=== PATIENT | male | born 1985 | race Two or more races ===

== ENCOUNTER 2018-08-24 14:08 | Emergency (ER) | payer SELFPAY ==
[~2018-08-24] VITALS: Ht 167.6 cm; Wt 63.5 kg
[2018-08-24] MEDS ORDERED: Tetanus/Diptheria/Pertussis Vaccine 0.5ml Syr IM ONE (14:15)
--- NOTE | 2018-08-24 14:37 | Emergency Room Report ---
History of Present Illness General Chief Complaint: Altered Mental Status Source: EMS Present Illness HPI 33-year-old male presents to the emergency department brought by ambulance for altered level of consciousness and possible trauma. Patient is clinically new. He is alert and reports that he is having some tenderness to the back of his head. He reports that he fell he states he has been drinking approximately 3-4 beers today. Patient denies acute onset headache, midline neck or back pain abdominal pain or tenderness, nausea or vomiting. Patient states he is able to walk. He denies taking blood thinning medications he states he is not currently taking any medicine patient's at all. Denies use of illicit drugs/ substances. He denies fevers or chills. He denies tenderness or abrasions/ wounds elsewhere on the body. Some history and ROS is limited due to pt. having ALC, he is a poor historian. He denies history of seizures or ETOH withdraws. Denies SI/HI. Allergies: Coded Allergies: UNABLE TO ASSESS (Unverified , 08/24/18) Patient History Past Medical History: see triage record Past Surgical History: none Pertinent Family History: none Social History: Reports: alcohol use Reviewed Nursing Documentation: PMH: Agreed; PSxH: Agreed Nursing Documentation-PMH Past Medical History: Deferred Review of Systems All Other Systems: limited - pt. is clinically ineubriated. Physical Exam Vital Signs Date Time Temp Pulse Resp B/P (MAP) Pulse Ox O2 Delivery O2 Flow Rate FiO2 08/24/18 14:10 98.5 130 16 144/87 96 Room Air 98.4 Sp02 EP Interpretation: reviewed, normal General Appearance: no apparent distress, alert, GCS 15, non-toxic, other - Disheveled Head: normocephalic, other - contusion and abrasions to the right cheekbone and the right upper lip, no oral lesions, some dry blood in the right nare, no septal hematoma. no george signs or evidence of hemotympanum or csf leakage. Eyes: bilateral eye normal inspection, bilateral eye PERRL ENT: hearing grossly normal, normal voice Neck: full range of motion, no bony tend Respiratory: chest non-tender, lungs clear, normal breath sounds, no wheezing, speaking full sentences Cardiovascular #1: regular rate, rhythm, no edema Gastrointestinal: normal bowel sounds, non tender, soft, non-distended, no guarding, other - mild skin discoloration possible resolving contusion the the left anterior abdomen, no ttp. Rectal: deferred Musculoskeletal: back normal, gait/station normal, normal range of motion, non- tender Neurologic: alert, responsive, motor strength/tone normal, sensory intact, speech normal - mildly slurred, clear for the most part. , other - pt. has normal gross motor movemetns of the extremity, strength normal and equal bilaterally. gross sensation is intact. there is evidence of urine on his pants. , grossly normal Psychiatric: judgement/insight normal Skin: normal color, no rash, warm/dry, well hydrated Lymphatic: no adenopathy Medical Decision Making PA Attestation Dr. belcher is my supervising Physician whom patient management has been discussed with. Diagnostic Impression: Primary Impression: Alcohol intoxication Qualified Codes: F10.920 - Alcohol use, unspecified with intoxication, uncomplicated Additional Impressions: Contusion of face Qualified Codes: S00.83XA - Contusion of other part of head, initial encounter Facial abrasion Qualified Codes: S00.81XA - Abrasion of other part of head, initial encounter Elevated liver function tests ER Course 33-year-old male presents to the emergency department brought by ambulance for altered level of consciousness and possible trauma. Patient is clinically new. He is alert and reports that he is having some tenderness to the back of his head. He reports that he fell he states he has been drinking approximately 3-4 beers today. Patient denies acute onset headache, midline neck or back pain abdominal pain or tenderness, nausea or vomiting. Patient states he is able to walk. He denies taking blood thinning medications he states he is not currently taking any medicine patient's at all. Denies use of illicit drugs/ substances. He denies fevers or chills. He denies tenderness or abrasions/ wounds elsewhere on the body. Some history and ROS is limited due to pt. having ALC, he is a poor historian. He denies history of seizures or ETOH withdraws. Denies SI/HI. - facial contusion and abrasions suspicious for trauma. Ddx considered but are not limited to ETOH, DT's, Withdraw, Trauma, Syncope, dementia, OD Vital signs: tachycardic, otherwise are WNL, pt. is afebrile- BP remains stable tachycardia improved some. H&PE are most consistent with ETOH intoxication, however will r/o other emergent conditions associated with AMS as well as check serum ETOH to confirm presence of ETOH. ORDERS: -Labs- ETOH was 315, mildly decreased cl, na, k - pt. given IV fluids, elevated LFT's. -CT imaging Head and facial bones unremarkable ED INTERVENTIONS: -Wound Care -Observance while he detoxifies. - Pt. was allowed to sleep/rest. PT. became awake and alert x 3 He was ambulatory about the ED, and asking various nurses to go home. pt. continues to have some tachycardia, Pt. still has no other complaints. DISCHARGE: At this time pt. is stable for d/c to home. Will provide printed patient care instructions, and any necessary prescriptions. Care plan and follow up instructions have been discussed with the patient prior to discharge. Labs Test 08/24/18 14:13 08/24/18 15:00 Urine Opiates Screen Negative (NEGATIVE) Urine Barbiturates Screen Negative (NEGATIVE) Phencyclidine (PCP) Screen Negative (NEGATIVE) Urine Amphetamines Screen Negative (NEGATIVE) Urine Benzodiazepines Screen Negative (NEGATIVE) Urine Cocaine Screen Negative (NEGATIVE) Urine Marijuana (THC) Screen Negative (NEGATIVE) White Blood Count 10.0 K/UL (4.8-10.8) Red Blood Count 4.13 M/UL (4.70-6.10) Hemoglobin 14.0 G/DL (14.2-18.0) Hematocrit 38.0 % (42.0-52.0) Mean Corpuscular Volume 92 FL (80-99) Mean Corpuscular Hemoglobin 33.8 PG (27.0-31.0) Mean Corpuscular Hemoglobin Concent 36.8 G/DL (32.0-36.0) Red Cell Distribution Width 9.3 % (11.6-14.8) Platelet Count 155 K/UL (150-450) Mean Platelet Volume 9.7 FL (6.5-10.1) Neutrophils (%) (Auto) 71.2 % (45.0-75.0) Lymphocytes (%) (Auto) 20.6 % (20.0-45.0) Monocytes (%) (Auto) 6.2 % (1.0-10.0) Eosinophils (%) (Auto) 0.0 % (0.0-3.0) Basophils (%) (Auto) 1.9 % (0.0-2.0) Sodium Level 135 MMOL/L (136-145) Potassium Level 3.3 MMOL/L (3.5-5.1) Chloride Level 96 MMOL/L (98-107) Carbon Dioxide Level 21 MMOL/L (21-32) Anion Gap 18 mmol/L (5-15) Blood Urea Nitrogen 5 mg/dL (7-18) Creatinine 1.1 MG/DL (0.55-1.30) Estimat Glomerular Filtration Rate > 60 mL/min (>60) Glucose Level 216 MG/DL (74-106) Calcium Level 8.6 MG/DL (8.5-10.1) Total Bilirubin 1.2 MG/DL (0.2-1.0) Direct Bilirubin 0.5 MG/DL (0.0-0.3) Aspartate Amino Transf (AST/SGOT) 84 U/L (15-37) Alanine Aminotransferase (ALT/SGPT) 55 U/L (12-78) Alkaline Phosphatase 152 U/L (46-116) Total Protein 7.6 G/DL (6.4-8.2) Albumin 3.8 G/DL (3.4-5.0) Globulin 3.8 g/dL Albumin/Globulin Ratio 1.0 (1.0-2.7) Salicylates Level < 0.2 ug/mL (2.8-20) Acetaminophen Level < 2 MCG/ML (10-30) Serum Alcohol 315 mg/dL CT/MRI/US Diagnostic Results CT/MRI/US Diagnostic Results #1: Imaging Test Ordered: CT head No contrast Impression Radiological Impression was "unremarkable" , some artifact noted per official radiology report. Please refer to radiologist reports for any specific details. CT/MRI/US Diagnostic Results #2: Imaging Test Ordered: CT facial bones Impression Radiological Impression was "unremarkable" per official radiology report. Please refer to radiologist reports for any specific details. Last Vital Signs Date Time Temp Pulse Resp B/P (MAP) Pulse Ox O2 Delivery O2 Flow Rate FiO2 08/24/18 14:10 98.5 130 16 144/87 96 Room Air 98.4 Status: improved Disposition: HOME, SELF-CARE Condition: Stable Patient Instructions: Alcohol Intoxication, [id number] Additional Instructions: Stop drinking alcohol, stop excessive use of alcohol. Take medications as directed. Follow up with a Primary Care Provider in 3-5 days, even if your symptoms have resolved. --Please review list of primary care clinics, if you do not already have a primary care provider, please review list of substance abuse resources. Return sooner to ED if new symptoms occur, or current symptoms become worse. - Please note that this Emergency Department Report was dictated using [employer] mechanism maker technology software, occasionally this can lead to erroneous entry secondary to interpretation by the dictation equipment. Ariela Guillaume Aug 24, 2018 14:37
[2018-08-24 15:12] VITALS: BP 136/81
[2018-08-24 15:26] LABS: ANION GAP 18 mmol/L (5-15); BLOOD UREA NITROGEN 5 mg/dL (7-18); CALCIUM 8.6 MG/DL (8.5-10.1); CARBON DIOXIDE 21 MMOL/L (21-32); CHLORIDE 96 MMOL/L (98-107); CREATININE 1.1 MG/DL (0.55-1.30); POTASSIUM 3.3 MMOL/L (3.5-5.1); SODIUM 135 MMOL/L (136-145)
[2018-08-24 15:29] LABS: BASOPHILS % (AUTO) 1.9 % (0.0-2.0); LYMPHOCYTES % (AUTO) 20.6 % (20.0-45.0); MEAN CORPUSCULAR VOLUME 92 FL (80-99); MONOCYTES % (AUTO) 6.2 % (1.0-10.0); NEUTROPHILS % (AUTO) 71.2 % (45.0-75.0); PLATELET COUNT 155 K/UL (150-450); RED BLOOD COUNT 4.13 M/UL (4.70-6.10); RED CELL DISTRIBUTION WIDTH 9.3 % (11.6-14.8)
--- NOTE | 2018-08-24 15:35 | Diagnostic Imaging Report ---
EXAM: CT Head Without Intravenous Contrast CLINICAL HISTORY: AMS TECHNIQUE: Axial computed tomography images of the head/brain without intravenous contrast. CTDI is 70.38 mGy and DLP is 1407.53 mGy-cm One or more of the following dose reduction techniques were used: automated exposure control, adjustment of the mA and/or kV according to patient size, use of iterative reconstruction technique. COMPARISON: No relevant prior studies available. FINDINGS: Brain: No intracranial hemorrhage or mass effect on exam that is slightly limited by artifact Ventricles: Unremarkable. No ventriculomegaly. Bones/joints: Unremarkable. No acute fracture. Sinuses: Unremarkable as visualized. No acute sinusitis. Mastoid air cells: Unremarkable as visualized. No mastoid effusion. IMPRESSION: No acute intracranial process
--- NOTE | 2018-08-24 15:41 | Diagnostic Imaging Report ---
EXAM: CT Maxillofacial Without Intravenous Contrast CLINICAL HISTORY: PAIN TECHNIQUE: Axial computed tomography images of the face without intravenous contrast. CTDI is 28.19 mGy and DLP is 625.85 mGy-cm One or more of the following dose reduction techniques were used: automated exposure control, adjustment of the mA and/or kV according to patient size, use of iterative reconstruction technique. COMPARISON: No relevant prior studies available. FINDINGS: Bones/joints: Slightly limited by motion artifact. No acute fracture. Soft tissues: Unremarkable. Orbits: Unremarkable. Sinuses: Unremarkable. No air-fluid levels. IMPRESSION: No acute abnormality
[2018-08-24 15:45] LABS: ALANINE AMINOTRANSFERASE 55 U/L (12-78); ALBUMIN 3.8 G/DL (3.4-5.0); ALKALINE PHOSPHATASE 152 U/L (46-116); ASPARTATE AMINO TRANSFERASE 84 U/L (15-37); BILIRUBIN,TOTAL 1.2 MG/DL (0.2-1.0)
[2018-08-24 15:50] LABS: BILIRUBIN,DIRECT 0.5 MG/DL (0.0-0.3)
[2018-08-24 17:00] VITALS: BP 122/81
[2018-08-24 18:35] VITALS: BP 124/82
[2018-08-24] MEDS ORDERED: Bacitracin Oint UD TOPIC ONE (20:00)
[2018-08-24 20:01] VITALS: BP 118/76
== END 2018-08-24 20:04 | disposition home or self-care (01) ==
LOC: EDBD 14:08 → EMR 14:44
DX: S00.83XA Contusion of other part of head, initial encounter (principal); R40.4 Transient alteration of awareness; F10.920 Alcohol use, unspecified with intoxication, uncomplicated; Z23 Encounter for immunization; W19.XXXA Unspecified fall, initial encounter
CPT/HCPCS: 36415; 70450; 70486; 80053; 80307; 82248; 85025; 90471; 90715; 96360; 99284; G0480; 80329